=== PATIENT | female | born 1990 | race Caucasian/White ===

== ENCOUNTER 2023-12-19 09:51 | Emergency (ER) | payer BC, SELFPAY ==
--- NOTE | ~2023-12-19 | US_ITS ---
EXAMINATION: US OB <= 14 weeks fetus DATE: 12/19/2023 13:33 INDICATION: Vaginal bleeding during first trimester TECHNIQUE: Real-time pelvic ultrasound utilizing both a transvaginal and transabdominal probe was pe rformed. The interpreting radiologist was not present for the study. COMPARISON: None. FINDINGS: The uterus measures 13.5 x 7.5 x 9.0 cm. There is an intrauterine gestational sac. A yolk sac and fe jerrod pole are identified. The crown rump length measures 4.3 cm, which correlates with an estimated ge stational age of 11 weeks and 1 days. heart motion is identified measuring 156 beats per minute (bpm) by M-mode Doppler. The bilateral ovaries are not visualized. There is no free fluid in the pelvis. IMPRESSION: 1. Single living fetus with heart rate of 156 bpm. 2. Gestational age by ultrasound of 11 weeks 1 day(s) +/- 7 day(s) with ultrasound estimated date of delivery (PRABHJOT) of 07/08/2024. Reviewed, dictated and finalized at location A. IMPRESSION: 1. Single living fetus with heart rate of 156 bpm. 2. Gestational age by ultrasound of 11 weeks 1 day(s) +/- 7 day(s) with ultras ound estimated date of delivery (PRABHJOT) of 07/08/2024.
[2023-12-19 10:03] VITALS: BP 133/67; PULSE 81; RESP 18; TEMP 36.7; O2SAT 99
[2023-12-19 12:53] VITALS: BP 119/75; PULSE 79; RESP 15; TEMP 36.6; O2SAT 100
--- NOTE | 2023-12-19 14:11 | ED.GENADULT ---
HPI - General Adult General Chief complaint: Vaginal Bleeding Stated complaint: vag bleeding, 10 weeks preg Time Seen by Provider: 12/19/23 13:42 History of Present Illness HPI narrative: 33-year-old female present to the emergency department for evaluation of vaginal spotting. Patient is approximately 10 weeks and is A1. Patient's miscarriage was in June and patient's delivery was approximately 8 years ago. Patient states last night after her shower she noticed she was having some pink discharge. Patient states that it resolved over the course of the night and was resolved this morning. Patient denies any abdominal cramping or abdominal pain with this. Patient is asymptomatic upon arrival to the emergency department. Patient's blood type is A positive. Related Data Allergies Allergy/AdvReac Type Severity Reaction Status Date / Time No Known Allergies Allergy Verified 12/19/23 12:53 Review of Systems Review of Systems: All systems reviewed & are unremarkable except as noted in HPI and below Exam Narrative: APPEARANCE: Well appearing, no pain, no distress, well-nourished. HEAD: normocephalic, atraumatic. EYES: PERRLA/EOMI, conjunctivae clear. NOSE: Normal no drainage EARS:TMS clear with good light reflex. THROAT: Pharynx clear, no exudate. NECK: Supple. No adenopathy, no masses. RESPIRATORY: Airway patent, respirations nonlabored. Clear to auscultation bilaterally, no rales, rhonchi, wheezing. CARDIOVASCULAR: Regular rate and rhythm without murmurs rubs or gallops. ABDOMINAL: Soft, nontender, nondistended, normal bowel sounds MUSCULOSKELETAL: Moves all extremities. Strength/ROM intact, No edema, No calf tenderness. NEURO: Alert. Cranial nerves II through XII intact. Grossly intact SKIN: Warm, dry. Normal Color Course Course Emergency Course: Patient was updated results of her workup was discharged home to follow-up with her OB Gyne. Vital Signs Vital signs: Vital Signs Temperature 98.0 F 12/19/23 10:03 Pulse Rate 81 12/19/23 10:03 Respiratory Rate 18 12/19/23 10:03 Blood Pressure 133/67 12/19/23 10:03 Pulse Oximetry 99 12/19/23 10:03 Temperature 98 F 12/19/23 16:34 Pulse Rate 65 12/19/23 16:34 Respiratory Rate 18 12/19/23 16:34 Blood Pressure 103/78 12/19/23 16:34 Pulse Oximetry 100 12/19/23 16:34 Oxygen Delivery Room Air 12/19/23 12:53 Medical Decision Making [facility] Narrative Medical decision making narrative: 33-year-old female presenting ED for evaluation for vaginal spotting. Vaginal spotting has resolved. Patient is afebrile. Ultrasound showed a single live intrauterine . Patient is afebrile with no leukocytosis and a stable hemoglobin of 13.2. INR 0.9. No acute abnormalities on the patient's CMP UA was negative for infection but did have blood in this is thought to be contamination from resolving vaginal bleeding, urine culture was ordered. Patient was A positive so she did not need to be treated with RhoGAM. Patient was updated results of workup patient is comfortable plan for discharge and close follow-up. Differential Diagnosis Differential Diagnosis: Placental abruption, threatened miscarriage, vaginal bleeding Vital Signs Vital Signs: Vital Signs Temperature 98.0 F 12/19/23 10:03 Pulse Rate 81 12/19/23 10:03 Respiratory Rate 18 12/19/23 10:03 Blood Pressure 133/67 12/19/23 10:03 Pulse Oximetry 99 12/19/23 10:03 Temperature 98 F 12/19/23 16:34 Pulse Rate 65 12/19/23 16:34 Respiratory Rate 18 12/19/23 16:34 Blood Pressure 103/78 12/19/23 16:34 Pulse Oximetry 100 12/19/23 16:34 Oxygen Delivery Room Air 12/19/23 12:53 Lab Data Lab results reviewed: Yes I reviewed the patient's lab results. 12/19/23 14:57 12/19/23 14:57 Labs: Lab Results 12/19/23 12/19/23 Range/Units 14:57 16:01 WBC 9.6 (4.5-10.0) K/mm3 RBC 4.56 (4.2-5.4) M/m
[2023-12-19 14:32] VITALS: BP 111/83; PULSE 74; RESP 15; O2SAT 95
[2023-12-19 15:13] LABS: Basophils Percent Auto 0.4 % (0.2-1.2); Eosinophils Absolute Auto 0.1 K/mm3 (0-0.3); Hematocrit 39.5 % (37.0-47.0); Hemoglobin 13.2 g/dL (12.0-15.0); Immature Granulocyte Absolute 0.04 K/mm3 (0.00-0.031); Immature Granulocyte Percent A 0.4 % (0-0.5); Lymphocytes Absolute Auto 2.07 K/mm3 (0.9-3.2); Lymphocytes Percent Auto 21.7 % (18.3-44.2); Mean Corpuscular HGB Conc 33.4 g/dl (32-36); Mean Corpuscular Hemoglobin 28.9 pg (26-34); Mean Corpuscular Volume 86.6 fl (80-100); Mean Platelet Volume 11.3 fl (7.4-10.4); Monocytes Absolute Auto 0.7 K/mm3 (0.1-0.6); Monocytes Percent Auto 6.9 % (2.6-8.5); Neutrophils Absolute Auto 6.7 K/mm3 (1.3-6.7); Neutrophils Percent Auto 69.6 % (45.5-73.1); Platelet Count Result 281 k/mm3 (150-375); Red Blood Count 4.56 M/mm3 (4.2-5.4); Red Cell Distribution Width 13.8 % (11.5-14.5); White Blood Count 9.6 K/mm3 (4.5-10.0)
[2023-12-19 15:24] LABS: INR 0.9; Prothrombin Time 12.8 Seconds (11.1-14.7)
[2023-12-19 15:25] LABS: Partial Thromboplastin Time 21.1 Seconds (22.3-36.8)
[2023-12-19 15:28] LABS: Add Urine Microscopic? YES; Alanine Aminotransferase 35 U/L (6-35); Albumin Level 4.3 g/dL (3.5-5.1); Alkaline Phosphatase 42 U/L (38-126); Anion Gap 11 mmol/L (4-12); Appearance Urine Clear (Clear); Aspartate Amino Transferase 28 U/L (14-36); Bacteria Urine 1+ /hpf; Bilirubin Urine Negative (Negative); Bilirubin,Total 0.4 mg/dL (0.2-1.3); Blood Urea Nitrogen 6 mg/dL (7-17); Blood Urine 2+ (Negative); Calcium 9.4 mg/dL (8.4-10.2); Carbon Dioxide 21 mmol/L (22-30); Chloride 105 mmol/L (98-107); Color Urine Yellow (Yellow); Estimated CRCL calculation 186 ml/min; Estimated Glomerular Filt Rate > 60; Glucose 78 mg/dL (65-110); Glucose Urine UA Negative (Negative); Ketones Urine 3+ mg/dL (Negative); Leukocyte Esterase Ur Trace LEU/UL (Negative); Need Manual Microscopic Reviewed; Nitrate Urine Negative (Negative); Non Pathogenic Casts 0-2; Potassium 3.9 mmol/L (3.4-5.0); Protein Urine Negative (Negative); Sodium 137 mmol/L (137-145); Specific Grav Ur 1.014 (1.001-1.035); Squamous Epithelial Cell Urine Occasional /hpf (Few); WBC Urine 0-5 /hpf (0-3)
[2023-12-19 16:34] VITALS: BP 103/78; PULSE 65; RESP 18; TEMP 36.6; O2SAT 100
== END 2023-12-19 17:13 | disposition home or self-care (01) ==
PROVIDERS: Emergency Provider Emergency Medicine
DX: O20.9 Hemorrhage in early pregnancy, unspecified (principal); O09.521 Supervision of elderly multigravida, first trimester; Z3A.10 10 weeks gestation of pregnancy
CPT/HCPCS: 36415; 76801; 80053; 81001; 84702; 85025; 85461; 85610; 85730; 86850; 86900; 86901; 99284

== ENCOUNTER 2024-02-11 14:51 | Emergency (ER) | payer BC, SELFPAY ==
[2024-02-11 14:54] VITALS: BP 145/89; PULSE 98; RESP 16; TEMP 36.6; O2SAT 100
--- NOTE | 2024-02-11 16:06 | ED.FALL ---
HPI - Fall General Chief Complaint: Fall Stated Complaint: 17 weeks preg, fell on left side Time Seen by Provider: 02/11/24 14:59 Source: patient Mode of arrival: ambulatory Limitations: no limitations History of Present Illness HPI Narrative: This is a 34-year-old female, , currently at 17 weeks who presents to the emergency department after a ground level fall. The patient states she slipped on loose object on the floor, causing the right ankle to forcibly invert and for her to land on her left shoulder and hip. She complains of mild dull tenderness of the ankle and mild dull tenderness of the shoulder and hip. She denies head injury or loss of consciousness. She denies injury to the abdomen, abdominal pain, vaginal bleeding and has no other complaints at this time Related Data Allergies Allergy/AdvReac Type Severity Reaction Status Date / Time No Known Allergies Allergy Verified 12/19/23 12:53 Review of Systems Review of Systems: last menstrual period approximately the October 16 2023 All systems reviewed & are unremarkable except as noted in HPI and below PMFSH Past Medical History Medical History (Updated 02/11/24 @ 16:29 by Steven Salter MD) No significant past medical history Surgical History Surgical History (Updated 02/11/24 @ 16:08 by Steven Salter MD) History of Social History Social History (Updated 02/11/24 @ 16:08 by Steven Salter MD) Smoking status: Never smoker Alcohol intake: never Substance use: never Exam Narrative: GENERAL: Well-developed, well-nourished, and in no acute distress. HEAD: Normocephalic, atraumatic. EYES: PERRLA and EOMI. CHEST: Clear to auscultation. No respiratory distress. No wheezes rales or rhonchi HEART: Regular rate and rhythm. No murmur heard. Normal peripheral pulses. ABDOMEN: Soft, gravid uterus, nontender, nondistended, normal active bowel sounds. EXTREMITIES: Tender to palpation at the lateral distal malleolus. Normal range of motion. No edema. SKIN: Warm, dry, no rash. NEURO: Alert and oriented x3. No focal deficit. Moving all 4 limbs spontaneously PSYCH: Normal mood and affect. Course Course Emergency Course: 15:45 -Bedside ultrasound by me demonstrates a single intrauterine with heart rate of 140. There is no free fluid in the abdomen. 15:55 - I was informed by nursing staff, the patient is declining imaging of the ankle. 16:19 - I discussed the patient with her Ob /soil and plant scientist, Dr. Goldsmith who agrees with the plan and recommends close follow-up. 16:25 - Repeat blood pressure improved to 112/87 with prior readings in the 110s over 80s. The patient states she was very anxious, having had history miscarriage regarding imaging. Will discharge with conservative management for waiting. I discussed rice therapy and recommendation for primary care and [facility] follow-up. The patient was understanding and is comfortable with the plan. I discussed the findings and recommendations with the patient. Discussed return and emergency precautions including signs/symptoms of distress and miscarriage. The patient voiced understanding and agreement with the plan. All questions answered to her satisfaction. Vital Signs Vital signs: Vital Signs Temperature 97.9 F 02/11/24 14:54 Pulse Rate 98 02/11/24 14:54 Respiratory Rate 16 02/11/24 14:54 Blood Pressure 145/89 H 02/11/24 14:54 Pulse Oximetry 100 02/11/24 14:54 Oxygen Delivery Room Air 02/11/24 14:54 Temperature 97.9 F 02/11/24 14:54 Pulse Rate 98 02/11/24 14:54 Respiratory Rate 16 02/11/24 14:54 Blood Pressure 145/89 H 02/11/24 14:54 Pulse Oximetry 100 02/11/24 14:54 Oxygen Delivery Room Air 02/11/24 14:54 MDM - Fall MDM Narrative Medical decision making narrative: Plan: Bedside ultrasound, imaging, pain control, reassess Differential Diagnosis Differential diagnosis: Likely other ( ankle fracture, an
--- NOTE | 2024-02-11 16:22 | PC.NURSE ---
pt refused xray. EDP aware
== END 2024-02-11 16:37 | disposition home or self-care (01) ==
PROVIDERS: Emergency Provider Preventive Medicine Aerospace Medicine
DX: O9A.212 Injury, poisoning and certain other consequences of external causes complicating pregnancy, second trimester (principal); S99.911A Unspecified injury of right ankle, initial encounter; O09.522 Supervision of elderly multigravida, second trimester; Z3A.17 17 weeks gestation of pregnancy; W18.09XA Striking against other object with subsequent fall, initial encounter
CPT/HCPCS: 99282

== ENCOUNTER 2024-03-18 18:19 | Emergency (ER) | payer BC, SELFPAY ==
--- NOTE | ~2024-03-18 | US_ITS ---
EXAMINATION: US OB limited DATE: 03/18/2024 20:35 [employer] INDICATION: Trauma TECHNIQUE: Real-time transabdominal obstetric ultrasound. FINDINGS: 3 para 1 There is a single intrauterine gestation in breech presentation. The placenta is anterior without pl acenta previa. cardiac activity and movement is noted with a heart rate of 142 beats per minute. Amniotic fluid index measures 14.9 cm (normal is between 9.8 and 22 cm). IMPRESSION: Single intrauterine gestation in breech presentation with normal amniotic fluid index. Cardiac activity and movement is identified. Reviewed, dictated and finalized at location A. [employer]
--- NOTE | 2024-03-18 18:41 | ED.FALL ---
HPI - Fall General Chief Complaint: Fall <Ayanna Mccord PA-C - Last Filed: 03/18/24 18:46> Stated Complaint: 23 wks preg, fall <Ayanna Mccord PA-C - Last Filed: 03/18/24 18:46> Time Seen by Provider: 03/18/24 18:41 <Ayanna Mccord PA-C - Last Filed: 03/18/24 18:46> Focused HPI: This is a 34 year old female that presents to the ER after a fall today. Reports she tripped over her rug in her classroom. Reports she landed on her knees and rolled to the left side. No specific complaints currently. Reports a mild pain in the right hip/pelvis that is intermittent. She is feeling baby move, but just wanted to get the baby checked. She is 23 weeks . Her OB is Dr. Fu. Denies vaginal bleeding, cramping. GENERAL: Well-appearing, well-nourished, and in no acute distress. HEAD: Normocephalic, atraumatic. CHEST: Clear to auscultation. ?No respiratory distress. HEART: Regular rate and rhythm.? NEURO: ?Alert and oriented x3. Patient screened in triage and initial orders placed.? ?Additional care and disposition to be based upon?diagnostic testing and treatment. <Ayanna Mccord PA-C - Last Filed: 03/18/24 18:46> History of Present Illness HPI Narrative: Agree with above HPI <Mali Ruff MD - Last Filed: 03/18/24 20:54> Related Data Allergies/Adverse Reactions: Allergies Allergy/AdvReac Type Severity Reaction Status Date / Time No Known Allergies Allergy Verified 12/19/23 12:53 <Ayanna Mccord PA-C - Last Filed: 03/18/24 18:46> Review of Systems Review of Systems: All systems reviewed & are unremarkable except as noted in HPI and below <Mali Ruff MD - Last Filed: 03/18/24 20:54> PMFSH Past Medical History Medical History: Medical History No significant past medical history <Ayanna Mccord PA-C - Last Filed: 03/18/24 18:46> Surgical History Surgical History: Surgical History History of <Ayanna Mccord PA-C - Last Filed: 03/18/24 18:46> Social History Social History: Social History Smoking status: Never smoker Alcohol intake: never Substance use: never <Ayanna Mccord PA-C - Last Filed: 03/18/24 18:46> Exam Narrative: GENERAL: Well-appearing, well-nourished, and in no acute distress. HEAD: Normocephalic, atraumatic. EYES: PERRLA and EOMI. ENT: Mucous membranes moist. NECK: Supple. CHEST: No respiratory distress. HEART: Regular rate and rhythm ABDOMEN: Soft, appropriately gravid, nontender EXTREMITIES: Normal range of motion. SKIN: Warm, dry, no rash. NEURO: Alert and oriented x3. PSYCH: Normal mood and affect. <Mali Ruff MD - Last Filed: 03/18/24 20:54> Course Vital Signs Vital signs: Vital Signs Temperature 97.8 F 03/18/24 18:45 Pulse Rate 104 H 03/18/24 18:45 Respiratory Rate 20 03/18/24 18:45 Blood Pressure 121/70 03/18/24 18:45 Pulse Oximetry 100 03/18/24 18:45 Oxygen Delivery Room Air 03/18/24 18:45 Temperature 97.8 F 03/18/24 18:45 Pulse Rate 104 H 03/18/24 18:45 Respiratory Rate 20 03/18/24 18:45 Blood Pressure 121/70 03/18/24 18:45 Pulse Oximetry 100 03/18/24 18:45 Oxygen Delivery Room Air 03/18/24 18:45 <Ayanna Mccord PA-C - Last Filed: 03/18/24 18:46> Vital Signs Temperature 97.8 F 03/18/24 18:45 Pulse Rate 104 H 03/18/24 18:45 Respiratory Rate 20 03/18/24 18:45 Blood Pressure 121/70 03/18/24 18:45 Pulse Oximetry 100 03/18/24 18:45 Oxygen Delivery Room Air 03/18/24 18:45 Temperature 97.8 F 03/18/24 18:45 Pulse Rate 104 H 03/18/24 18:45 Respiratory Rate 20 03/18/24 18:45 Blood Pressure 121/70 03/18/24 18:45 Pulse Oximetry 100 03/18/24 18:45 Oxygen Delivery Room Air 03/18/24 18:45 <Mali Ruff MD - Last Filed: 03/18/24 20:54> MDM - Fall MDM Narrative Medical decision making narrative: 34-year-old female presenting after a fall. Vitals stable. Exam remarkable for the above. States she is just worried about her baby as this is her 2nd fall. Ultrasound obtained shows no acute abnormalities. Positive cardiac activity, normal amniotic fluid levels. Patient is safe for outpatient management. Recommend OB follow-up. Appropriate return precautions given. Discharged in stable condition. <Mali Ruff MD - Last Filed: 03/18/24 20:54> Imaging Data Radiologist's impression: ITS Impressions Obstetrics Ultrasound 03/18/24 20:34 IMPRESSION: Single intrauterine gestation in breech presentation with normal amniotic fluid index. Cardiac activity and movement is identified. <Mali Ruff MD - Last Filed: 03/18/24 20:54> Critical Care Time Critical Care Time Critical Care Time: No <Mali Ruff MD - Last Filed: 03/18/24 20:54> Discharge Plan Discharge Clinical Impression: Fall, Second trimester <Ayanna Mccord PA-C - Last Filed: 03/18/24 18:46> Patient Disposition: Home, Self-Care <Ayanna Mccord PA-C - Last Filed: 03/18/24 18:46> Condition: Stable <Ayanna Mccord PA-C - Last Filed: 03/18/24 18:46> Instructions: Antibiotic Form <Ayanna Mccord PA-C - Last Filed: 03/18/24 18:46> Additional Instructions: The ultrasound today shows a healthy fetus. Please follow-up with your OB. If your symptoms worsen or other concerning symptoms arise, please return to the ER. <Ayanna Mccord PA-C - Last Filed: 03/18/24 18:46> Follow-up/Referrals: PHYSICIAN NOT ON STAFF,NONSTAFF [Primary Care Provider] - <Ayanna Mccord PA-C - Last Filed: 03/18/24 18:46>
[2024-03-18 18:45] VITALS: BP 121/70; PULSE 104; RESP 20; TEMP 36.6; O2SAT 100
== END 2024-03-18 21:07 | disposition home or self-care (01) ==
LOC: ANHED 21:07
PROVIDERS: Emergency Provider Emergency Medicine
DX: O9A.212 Injury, poisoning and certain other consequences of external causes complicating pregnancy, second trimester (principal); R10.2 Pelvic and perineal pain; O09.522 Supervision of elderly multigravida, second trimester; Z3A.23 23 weeks gestation of pregnancy
CPT/HCPCS: 76815; 99284